=== PATIENT | female | born 1970 | race Caucasian/White ===

== ENCOUNTER 2016-12-05 08:44 | Emergency (ER) | payer SELFPAY ==
[~2016-12-05] VITALS: Ht 160 cm; Wt 56.7 kg
[2016-12-05 09:32] LABS: BILIRUBIN,URINE SMALL (NEG); GLUCOSE,URINE NEGATIVE (NEG); NITRITE,URINE POSITIVE (NEG); PH,URINE 5.5; PROTEIN,URINE 30 mg/dL (NEG-TRACE)
[2016-12-05 09:45] LABS: BACTERIA,URINE MANY /HPF (0-FEW); SQUAMOUS EPITHELIAL CELL,UR MANY /LPF
[2016-12-05] MEDS ORDERED: SULF1TAB24 PO (09:50)
--- NOTE | 2016-12-05 09:50 | PHYS DOC ---
Past Medical History Past Medical History: No Pertinent History Past Surgical History: Splenectomy, Tubal ligation, Other Additional Information: 1 ppd Alcohol Use: Heavy Additional Information: 1 pint/daily Drug Use: None Adult General Chief Complaint Chief Complaint: OTHER COMPLAINTS [facility] HPI Patient is a 46 year old female who presents with complaint of an odor to her urine and a cloudy color to the urine as well for 2 weeks. She states that she had similar symptoms approximately 1 year ago and was diagnosed with a kidney infection. She denies dysuria, urinary frequency or urgency, or hematuria. She has not had any fever, abdominal pain, nausea, vomiting, diarrhea, constipation , or vaginal discharge. She no longer has menstrual cycles. She does not have a PCP. Review of Systems Review of Systems Constitutional: Denies fever or chills. [] Eyes: Denies change in visual acuity, redness, or eye pain. [] HENT: Denies ear pain, nasal congestion or sore throat. [] Respiratory: Denies cough or shortness of breath. [] Cardiovascular: Denies chest pain, palpitations or edema. [] GI: Denies abdominal pain, nausea, vomiting, bloody stools or diarrhea. [] : Denies dysuria, hematuria or urinary frequency or urgency. Denies vaginal discharge. Reports cloudy urine with an odor. Musculoskeletal: Denies back pain or joint pain. [] Integument: Denies rash or skin lesions. [] Neurologic: Denies headache, focal weakness or sensory changes. [] Endocrine: Denies polyuria or polydipsia. [] Psych: Denies anxiety or depression. [] All systems reviewed and negative unless otherwise stated in the HPI. Allergies Allergies Allergies Coded Allergies Type Severity Reaction Last Updated Verified No Known Allergies Allergy Unknown 05/12/14 No Physical Exam Physical Exam Constitutional: Well developed, well nourished, no acute distress, non-toxic appearance. [] HENT: Normocephalic, atraumatic, oropharynx moist. [] Eyes: PERRLA, EOMI, conjunctiva normal, no discharge. [] Neck: Normal range of motion, no tenderness, supple, no stridor. [] Cardiovascular: Heart rate regular rhythm, no murmur. [] Lungs & Thorax: Bilateral breath sounds clear to auscultation without wheezes, rales, or rhonchi. [] Abdomen: Bowel sounds normal, soft, no tenderness, no masses, no pulsatile masses. [] Skin: Warm, dry, no erythema, no rash. [] Back: No midline tenderness, no CVA tenderness. [] Extremities: No tenderness, ROM intact, no edema. Distal pulses equal bilaterally. [] Neurologic: Alert and oriented X 3, normal motor function, normal sensory function, no focal deficits noted. [] Psychologic: Affect normal, judgement normal, mood normal. [] Current Patient Data Vital Signs Vital Signs Date Time Temp Pulse Resp B/P Pulse Ox O2 Delivery O2 Flow Rate FiO2 12/05/16 09:21 97.6 105 16 99 Room Air 97.6 Lab Values Laboratory Tests Test 12/05/16 09:12 Urine Collection Type Unknown Urine Color Marielle Urine Clarity Turbid Urine pH 5.5 Urine Specific [place] >=1.030 Urine Protein 30mg/dL (NEG-TRACE) Urine Glucose (UA) Negativemg/dL (NEG) Urine Ketones (Stick) Negativemg/dL (NEG) Urine Blood Moderate (NEG) Urine Nitrite Positive (NEG) Urine Bilirubin Small (NEG) Urine Urobilinogen Dipstick 1.0mg/dL (0.2 mg/dL) Urine Leukocyte Esterase Small (NEG) Urine RBC 3-5/HPF (0-2) Urine WBC 1-4/HPF (0-4) Urine Squamous Epithelial Cells Many/LPF Urine Bacteria Many/HPF (0-FEW) EKG EKG [] Radiology/Procedures Radiology/Procedures [] Course & Med Decision Making Course & Med Decision Making Pertinent Labs and Imaging studies reviewed. (See chart for details) [] Dragon Disclaimer Dragon Disclaimer This electronic medical record was generated, in whole or in part, using a voice recognition dictation system. Departure Departure Impression: Primary Impression: UTI (urinary tract infection) Disposition: 01 HOME, SELF-CARE Condition: STABLE Referrals: NO PCP (PCP) Patient Instructions: Urinary Tract Infection, [id number] Additional Instructions: Your urine has an infection. Please complete all the prescribed antibiotics, even if you are feeling better. Please follow-up with a primary care provider after completion of the antibiotics for recheck of your urine to be sure that the infection is resolved. Return to the emergency department if you have any new or concerning symptoms. Scripts Sulfamethoxazole/Trimethoprim (Bactrim Ds Tablet)1 Each Tablet1 Tab PO BID #14 TAB Prov:ZAHRAA VIVAR 12/05/16 Problem Qualifiers Primary Impression: UTI (urinary tract infection) Urinary tract infection type: acute cystitis Hematuria presence: without hematuria Qualified Code: N30.00 - Acute cystitis without hematuria ZAHRAA VIVAR Dec 05, 2016 09:50
[2016-12-05 10:20] VITALS: BP 132/77
== END 2016-12-05 10:23 | disposition home or self-care (01) ==
LOC: ER 08:44
DX: N39.0 Urinary tract infection, site not specified (principal); F17.200 Nicotine dependence, unspecified, uncomplicated; F10.10 Alcohol abuse, uncomplicated
CPT/HCPCS: 81001; 87086; 87186; 99284

== ENCOUNTER 2017-06-17 04:37 | Emergency (ER) | payer SELFPAY ==
[~2017-06-17] VITALS: Ht 91.4 cm; Wt 52.2 kg
[~2017-06-17 04:37] MED LIST: SULF1TAB24 PO
[2017-06-17 04:50] VITALS: BP 131/83
[2017-06-17 04:59] LABS: BILIRUBIN,URINE NEGATIVE (NEG); GLUCOSE,URINE NEGATIVE (NEG); NITRITE,URINE POSITIVE (NEG); PROTEIN,URINE NEGATIVE (NEG-TRACE); UROBILINOGEN,URINE 0.2 mg/dL (0.2 mg/dL)
[2017-06-17 05:08] LABS: BACTERIA,URINE MODERATE /HPF (0-FEW); SQUAMOUS EPITHELIAL CELL,UR FEW /LPF; WBC,URINE TNTC /HPF (0-4)
[2017-06-17] MEDS ORDERED: PHEN-318 PO (05:25)
[2017-06-17] MEDS ORDERED: NITR100C62 PO (05:25)
--- NOTE | 2017-06-17 05:25 | PHYS DOC ---
Past Medical History Past Medical History: Alcoholism, UTI Additional Past Medical Histor: UTI POS Ecoli (sensitive to everything) 11/2016 Past Surgical History: Splenectomy, Tubal ligation Alcohol Use: Heavy Drug Use: None Adult General Chief Complaint Chief Complaint: ABDOMINAL PAIN HPI HPI Patient is a 47 year old female who presents with painful urination. She awakened at 0230 am with difficulty to urinate and pain. Only going small amounts. Some back and lower bladder pain. No nausea or vomiting. No blood in urine. No fever. No recent illness. Review of Systems Review of Systems Constitutional: Denies fever or chills Eyes: Denies change in visual acuity, redness, or eye pain HENT: Denies nasal congestion or sore throat GI: POS lower abdominal pain, NO nausea, vomiting, bloody stools or diarrhea : POS dysuria but no hematuria Current Medications Current Medications Current Medications Medications (Trade) Dose Ordered Sig/Jason Start Time Stop Time Status Last Admin Dose Admin Ceftriaxone Sodium (Rocephin Im) 1 gm 1X ONCE 06/17/17 06:00 06/17/17 06:01 Ondansetron HCl (Zofran Odt) 4 mg 1X ONCE 06/17/17 06:00 06/17/17 06:01 Phenazopyridine HCl (Pyridium) 200 mg 1X ONCE 06/17/17 06:00 06/17/17 06:01 Allergies Allergies Allergies Coded Allergies Type Severity Reaction Last Updated Verified No Known Allergies Allergy Unknown 05/12/14 No Physical Exam Physical Exam Constitutional: Well developed, well nourished, no acute distress, non-toxic appearance. HENT: Normocephalic, atraumatic, bilateral external ears normal, oropharynx moist, no oral exudates, nose normal. Eyes: PERRLA, EOMI, conjunctiva normal, no discharge. Neck: Normal range of motion, no tenderness, supple, no stridor. Cardiovascular:Heart rate regular rhythm, no murmur Lungs & Thorax: Bilateral breath sounds clear to auscultation Abdomen: Bowel sounds normal, soft, tenderness over suprapubic, no rebound or guarding, no masses, no pulsatile masses. Skin: Warm, dry, no erythema, no rash. Back: No tenderness, no CVA tenderness. Extremities: No tenderness, no cyanosis, no clubbing, ROM intact, no edema. Neurologic: Alert and oriented X 3, normal motor function, normal sensory function, no focal deficits noted. Current Patient Data Vital Signs Vital Signs Date Time Temp Pulse Resp B/P (MAP) Pulse Ox O2 Delivery O2 Flow Rate FiO2 06/17/17 04:50 98.4 90 20 131/83 (99) 98 Room Air 98.4 Lab Values Laboratory Tests Test 06/17/17 04:45 Urine Collection Type Unknown Urine Color Yellow Urine Clarity Cloudy Urine pH 6.0 Urine Specific [place] 1.015 Urine Protein Negative mg/dL (NEG-TRACE) Urine Glucose (UA) Negative mg/dL (NEG) Urine Ketones (Stick) Negative mg/dL (NEG) Urine Blood Moderate (NEG) Urine Nitrite Positive (NEG) Urine Bilirubin Negative (NEG) Urine Urobilinogen Dipstick 0.2 mg/dL (0.2 mg/dL) Urine Leukocyte Esterase Large (NEG) Urine RBC 11-20 /HPF (0-2) Urine WBC Tntc /HPF (0-4) Urine Squamous Epithelial Cells Few /LPF Urine Bacteria Moderate /HPF (0-FEW) Urine Mucus Slight /LPF Course & Med Decision Making Course & Med Decision Making UA sent. SHe is menopausal. UA Positive. Rocephin IM here with po pyridium and zofran. Rx; Macrobid and Pyridium (prior urine culture sensitive). I have spoken with the patient and/or caregivers. I have explained the patient' s condition, diagnosis and treatment plan based on the information available to me at this time. I have answered the patient's and/or caregiver's questions and addressed any concerns. The patient and/or caregivers have as good an understanding of the patient's diagnosis, condition and treatment plan as can be expected at this point. The patient's condition is stable and appropriate for discharge from the emergency department. The patient will pursue further outpatient evaluation with the primary care physician or other designated or consulting physician as outlined in the discharge instructions. The patient and/or caregivers are agreeable to this plan of care and follow-up instructions have been explained in detail. The patient and/or caregivers have received these instructions in written format and have expressed an understanding of the discharge instructions. The patient and/or caregivers are aware that any significant change in condition or worsening of symptoms should prompt an immediate return to this or the Dragon Disclaimer Dragon Disclaimer This electronic medical record was generated, in whole or in part, using a voice recognition dictation system. Departure Departure Impression: Primary Impression: UTI (urinary tract infection) Disposition: HOME, SELF-CARE Condition: STABLE Referrals: NO PCP (PCP) Patient Instructions: Urinary Tract Infection Additional Instructions: YOU WERE GIVEN A SHOT HERE, A DOSE OF PYRIDIUM AND NAUSEA MEDICATION. YOU CAN FILL YOUR PRESCRIPTIONS LATER TODAY AND START THE ANTIBIOTIC TONIGHT. Scripts Nitrofurantoin Monohyd/M-Cryst (MACROBID 100 MG CAPSULE) 100 Mg Capsule 1 CAP PO BID, #14 CAP Prov: CHRISTIANO KIM MD 06/17/17 Phenazopyridine Hcl (PYRIDIUM) 200 Mg Tablet 200 MG PO TID, #10 TAB Prov: CHRISTIANO KIM MD 06/17/17 Problem Qualifiers Primary Impression: UTI (urinary tract infection) Urinary tract infection type: acute cystitis Hematuria presence: without hematuria Qualified Codes: N30.00 - Acute cystitis without hematuria CHRISTIANO KIM MD Jun 17, 2017 05:25
[2017-06-17] MEDS ORDERED: ONDANSETRON ODT 4 MG TAB.RAPDIS. PO ONE (06:00)
[2017-06-17] MEDS ORDERED: PHENAZOPYRIDINE 200 MG TABLET. PO ONE (06:00)
[2017-06-17] MEDS ORDERED: cefTRIAXone IM 1 GM VIAL IM ONE (06:00)
== END 2017-06-17 06:19 | disposition home or self-care (01) ==
LOC: ER 04:37
DX: N30.00 Acute cystitis without hematuria (principal); F10.20 Alcohol dependence, uncomplicated; Z87.440 Personal history of urinary (tract) infections; Z90.81 Acquired absence of spleen; Z98.51 Tubal ligation status
CPT/HCPCS: 81001; 87086; 96372; 99284; J0696; Q0162

== ENCOUNTER 2018-02-27 00:09 | Emergency (ER) | payer SELFPAY ==
[2018-02-27 01:06] LABS: URINE HCG POC HCG NEGATIVE (Negative)
[2018-02-27 01:13] LABS: BILIRUBIN,URINE SMALL (NEG); CLARITY,URINE CLOUDY; COLOR,URINE YELLOW; GLUCOSE,URINE NEGATIVE (NEG); NITRITE,URINE POSITIVE (NEG); PROTEIN,URINE 100 mg/dL (NEG-TRACE)
[2018-02-27 01:18] LABS: BACTERIA,URINE MANY /HPF (0-FEW); WBC,URINE TNTC /HPF (0-4)
[2018-02-27 01:19] LABS: SQUAMOUS EPITHELIAL CELL,UR FEW /LPF
== END 2018-02-27 01:45 | disposition home or self-care (01) ==
LOC: ER 00:09
DX: N39.0 Urinary tract infection, site not specified (principal); F10.20 Alcohol dependence, uncomplicated; Z98.51 Tubal ligation status
CPT/HCPCS: 81001; 81025; 87086; 87186; 99284

== ENCOUNTER 2018-03-11 12:42 | Emergency (ER) | payer SELFPAY ==
[2018-03-11 12:56] LABS: URINE HCG POC Borderline hCG level (Negative)
[2018-03-11 13:02] LABS: ADD MAN DIFF? NO
[2018-03-11 13:04] LABS: BASO # 0.1 x10^3/uL (0.0-0.2); BASO % 1 % (0-3); EOS # 0.1 x10^3/uL (0.0-0.7); EOS % 2 % (0-3); HEMATOCRIT 39.8 % (36.0-47.0); HEMOGLOBIN 14.1 g/dL (12.0-15.5); LYMPH # 2.4 x10^3/uL (1.0-4.8); LYMPH % 26 % (24-48); MEAN CORPUSCULAR HEMOGLOBIN 33 pg (25-35); MEAN CORPUSCULAR HGB CONC 35 g/dL (31-37); MEAN CORPUSCULAR VOLUME 94 fL (79-100); MONO # 0.7 x10^3/uL (0.0-1.1); MONO % 7 % (0-9); NEUT # 5.9 x10^3uL (1.8-7.7); NEUT % 64 % (31-73); PLATELET COUNT 444 x10^3/uL (140-400); RED BLOOD COUNT 4.25 x10^6/uL (3.50-5.40); RED CELL DISTRIBUTION WIDTH 13.6 % (11.5-14.5); WHITE BLOOD COUNT 9.1 x10^3/uL (4.0-11.0)
[2018-03-11 13:08] LABS: BILIRUBIN,URINE NEGATIVE (NEG); CLARITY,URINE CLEAR; COLOR,URINE YELLOW; GLUCOSE,URINE NEGATIVE (NEG); NITRITE,URINE NEGATIVE (NEG); PH,URINE 7.5; PROTEIN,URINE NEGATIVE (NEG-TRACE)
[2018-03-11 13:11] LABS: BARBITURATES NEG (NEG); BENZODIAZEPINES NEG (NEG); CANNABINOIDS NEG (NEG); COCAINE POS (NEG); METHADONE NEG (NEG); OPIATES NEG (NEG); PHENCYCLIDINE NEG (NEG)
[2018-03-11 13:12] LABS: AMPHETAMINE/METHAMPHETAMINE NEG (NEG); ETHANOL, URINE POS (NEG)
[2018-03-11 13:14] LABS: ANION GAP 9 (6-14); BLOOD UREA NITROGEN 18 mg/dL (7-20); BUN/CREATININE RATIO 26 (6-20); CALCIUM 9.4 mg/dL (8.5-10.1); CARBON DIOXIDE 27 mmol/L (21-32); CHLORIDE 103 mmol/L (98-107); CREATININE 0.7 mg/dL (0.6-1.0); GFR 88.9; GLUCOSE 111 mg/dL (70-99); POTASSIUM 3.9 mmol/L (3.5-5.1); SODIUM 139 mmol/L (136-145)
[2018-03-11 13:18] LABS: AMORPHOUS SEDIMENT,UR PRESENT /HPF; SQUAMOUS EPITHELIAL CELL,UR MANY /LPF
[2018-03-11 13:20] LABS: BACTERIA,URINE MANY /HPF (0-FEW)
[2018-03-11 13:21] LABS: ALBUMIN 3.8 g/dL (3.4-5.0); ALK PHOS 106 U/L (46-116); ALT (SGPT) 26 U/L (14-59); AST (SGOT) 18 U/L (15-37); MAGNESIUM 2.2 mg/dL (1.8-2.4); TOTAL BILIRUBIN 0.2 mg/dL (0.2-1.0); TOTAL PROTEIN 7.8 g/dL (6.4-8.2)
[2018-03-11] MEDS: IV NORMAL SALINE 1000ML BAG 1,000 ML IV (13:50)
[2018-03-11] MEDS: ACETAMINOPHEN 500 MG TABLET PO (13:50)
[2018-03-11] MEDS: ONDANSETRON ODT 4 MG TAB.RAPDIS. PO (13:50)
== END 2018-03-11 15:10 | disposition home or self-care (01) ==
LOC: ER 12:42
DX: S06.0X0A Concussion without loss of consciousness, initial encounter (principal); R53.83 Other fatigue; F10.10 Alcohol abuse, uncomplicated; F14.10 Cocaine abuse, uncomplicated; W18.09XA Striking against other object with subsequent fall, initial encounter; Y93.89 Activity, other specified; Y99.8 Other external cause status; Y92.89 Other specified places as the place of occurrence of the external cause
CPT/HCPCS: 36415; 70450; 80053; 80307; 81001; 81025; 83735; 85025; 93005; 96360; 99285-25; J7030; Q0162